=== PATIENT | male | born 1985 | race Caucasian/White ===

== ENCOUNTER → 2019-12-25 13:36 | Outpatient (CLI) | payer OTHER, SELFPAY ==
[2019-12-26 09:41] LABS: COVID19 Sendout Not Detected (Not Detect)
== END ==
PROVIDERS: Visit Provider Nurse Practitioner
DX: Z11.59 Encounter for screening for other viral diseases (principal)
CPT/HCPCS: 87635

== ENCOUNTER 2019-12-28 12:25 | Day surgery (SDC) | payer OTHER, SELFPAY ==
--- NOTE | 2019-12-28 | PATH_ITS ---
[facility] Accession Number: [id number] . 01 Material submitted: . PART A: colon - RIGHT COLON BIOPSY X3 PART B: colon - LEFT COLON BIOPSY X3 . 02 Diagnosis: A. - B. Right, Left Colon, Biopsies: Colonic mucosa with no diagnostic abnormality. Negative for active, chronic, and microscopic colitis. Negative for dysplasia and malignancy. . I 12/30/2019 1504 Local . 02 Electronically signed: . Robert Christy MD, PhD, Pathologist NPI- [id number] . 01 Gross description: . Part A: RIGHT COLON BIOPSY X3: Received in formalin are 6 fragment(s) of [place], soft tissue measuring 0.7 x 0.2 x 0.1 cm to 0.3 x 0.3 x 0.1 cm submitted entirely in 1 cassette(s) Part B: LEFT COLON BIOPSY X3: Received in formalin are 5 fragment(s) of [place], soft tissue measuring 0.9 x 0.3 x 0.1 cm to 0.4 x 0.3 x 0.1 cm submitted entirely in 1 cassette(s) /QBJ 12/29/2019 1001 Local . 02 Pathologist provided ICD-10: R19.4 . 02 CPT . 383351, [id number] Performed at: 01 [facility] [address], [place], [place] [id number] MD Hi Tucker MD Phone: [phone] Performed at: 02 [facility] [address] [place], [place] [id number] MD Lynn Luis MD Phone: [phone]
--- NOTE | 2019-12-28 09:45 | P.HP_ITS ---
History of Present Illness History of Present Illness Date Patient Seen: 12/28/19 Chief complaint: DX COLONOSCOPY W/POSS BX Narrative: 34-year-old male with a history of IBS with here for further evaluation of loose stools and periumbilical pain Meds Home Medications and Allergies Home Medications Medication Instructions Recorded Confirmed Type acetaminophen 350 mg PO PRN PRN 12/28/19 12/28/19 History albuterol sulfate 2 inh INHALATION Q4H PRN 12/28/19 12/28/19 History pantoprazole 40 mg PO DAILY 12/28/19 12/28/19 History Allergies Allergy/AdvReac Type Severity Reaction Status Date / Time No Known Drug Allergies Allergy Verified 12/28/19 12:38 Exam Narrative Exam Narrative: General: Patient is obese, not in apparent distress Cardiovascular: Regular rate and rhythm, no murmurs, rubs, or gallops; no evidence of edema; no palpable abdominal aortic aneurysm Gastrointestinal: Normoactive bowel sounds, soft, nontender, nondistended, no rebound tenderness, no hepatosplenomegaly, no evidence of hernia Assessment & Plan Assessment & Plan narrative: 34-year-old male with history of IBS with here for further evaluation of loose stools and periumbilical pain by means of colonosc opy Regarding the procedure(s), the risks and potential complications, benefits, and alternatives (including not doing the procedure) were discussed with the patient. The risks include but are not limited to bleeding, splenic injury, infection, perforation which may require surgical intervention, missed lesions, and adverse reactions to sedative medicines. After a question and answer period, the patient agreed to proceed with the procedure(s) and gives informed consent.
[2019-12-28] MEDS: SODIUM CHLORIDE 0.9% 1,000 ML 70 ML IV (12:36)
[2019-12-28 12:41] VITALS: BP 133/89; PULSE 81; RESP 16; TEMP 36.6; O2SAT 99; BMI 38.3
[2019-12-28] MEDS: MIDAZOLAM 5 MG/5 ML VIAL IV (13:05)
[2019-12-28] MEDS: fentaNYL 250 MCG/5 ML INJ IV (13:05)
--- NOTE | 2019-12-28 13:24 | P.OP.ENDO_ITS ---
Operative Date/Time/Diagnoses Date of procedure: 12/28/19 Procedure Notes Procedure in detail: Surgeon: Lucian Oseguera MD Procedure: Colonoscopy with biopsy Preoperative diagnosis: Change in bowel habits (loose stools); history of IBS Postoperative diagnosis: Grade 1 internal hemorrhoids otherwise normal colonoscopy; biopsies taken for microscopic colitis Medications: Conscious sedation using 6 mg IV of Midazolam and 150 mcg IV of Fentanyl Preanesthesia Assessment An H and P was performed/updated and the Px?s ASA class is 2. The procedure was discussed in detail with the patient. The potential risks and complications including infection, bleeding, missed lesions, perforation, need for surgery in case of perforation, prolonged hospital stay, and were explained. A brief question and answer period was allotted and once all questions were answered, informed consent was obtained. The patient was brought back to the procedure room and placed on standard monitoring. The patient?s vital signs were monitored continuously throughout the entire procedure. Prior to starting, a timeout was performed to confirm the patient?s identity, allergies, medications, and procedure. Procedure in detail The patient was placed in left lateral decubitus position and once adequate sedation was obtained a MARY was performed. The digital rectal examination did not reveal any palpable lesions. The tip of the colonoscope was placed in the anal canal and advanced without difficulty all the way to the cecum which was identified by the appendiceal orifice and the ileocecal valve. The terminal ileum was intubated to a distance of 5 cm from the ileocecal valve and the mucosa appeared normal. The colonoscope was then brought back into the cecum and careful examination of all [place] of the colon was performed with irrigation of any residual stool. The colonic mucosa appeared normal throughout the entire colon. Biopsies were taken from the left and right colon to rule out microscopic colitis. Bleeding was minimal with the biopsies Retroflexion was performed in the rectum which revealed grade 1 internal hemorrhoids The patient tolerated the procedure well and will be brought back to the recovery area to be discharged once criteria are met. The prep was judged to be good and adequate to identify polyps less than 5 mm. The withdrawal time was 9 minutes. The total physician intraservice time was 15 minutes. Complications There were no complications and estimated blood loss was minimal. Recommendations: Resume previous diet Continue outPx medications Follow up pathology results Repeat colonoscopy at age 50 for screening Call our office ([facility]) to schedule follow-up with Julisa Garcia in 2-3 weeks An emergency contact number was given to the patient for any complications related to the procedure
[2019-12-28 13:26] VITALS: BP 137/86; PULSE 82; RESP 12; TEMP 36.4; O2SAT 98
[2019-12-28 13:30] VITALS: BP 122/85; PULSE 86; RESP 10; O2SAT 97
[2019-12-28 13:35] VITALS: BP 126/88; PULSE 94; RESP 10; O2SAT 98
[2019-12-28 13:40] VITALS: BP 124/80; PULSE 96; RESP 12; O2SAT 98
[2019-12-28 14:03] VITALS: BP 121/86; PULSE 87; RESP 12; TEMP 36.8; O2SAT 98
== END 2019-12-28 14:05 | disposition home or self-care (01) ==
PROVIDERS: Referring Provider Internal Medicine Gastroenterology; Visit Provider Internal Medicine Gastroenterology
PROC: 0DJD8ZZ Inspection of Lower Intestinal Tract, Via Natural or Artificial Opening Endoscopic (ICD-10-PCS; CPT 45378; principal; 2019-12-28 13:30)
DX: R19.4 Change in bowel habit (principal); Z87.19 Personal history of other diseases of the digestive system; K64.0 First degree hemorrhoids
CPT/HCPCS: 45380; J2250; J3010

== ENCOUNTER → 2020-01-29 13:51 | Outpatient (CLI) | payer OTHER, SELFPAY ==
--- NOTE | 2020-01-29 13:52 | DI.RAD.S_ITS ---
PROCEDURE: XR FINGER RT MIN 2V INDICATIONS: right thumb pain TECHNIQUE: AP hand, 2 views of the right 1st finger(s) acquired. COMPARISON: None. FINDINGS: Bones: Mild degenerative changes at the 1st MCP . No fracture. No suspicious bony lesions. Soft tissues: No radiopaque foreign body. Soft tissue swelling about the proximal thumb. No suspicious soft tissue calcifications. IMPRESSION: Soft tissue swelling about the proximal thumb. No acute finding. Dictated by: Danny Camacho M.D. on 01/29/2020 at 14:21 Approved by: Danny Camacho M.D. on 01/29/2020 at 14:29
== END ==
PROVIDERS: PCP Physician Assistant Medical; Referring Provider Nurse Practitioner; Visit Provider Nurse Practitioner
DX: M79.644 Pain in right finger(s) (principal); M79.89 Other specified soft tissue disorders
CPT/HCPCS: 73140

== ENCOUNTER → 2020-06-08 06:40 | Outpatient (CLI) | payer OTHER, SELFPAY ==
--- NOTE | 2020-06-08 07:05 | DI.CT.S_ITS ---
PROCEDURE: CT SINUS SCREEN WO CON INDICATIONS: Impacted cerumen, unspecified ear,Chronic pansinus TECHNIQUE: Noncontrast 3.0 mm axial images acquired from the frontal sinuses to the mid-sella, with coronal and sagittal reformats. For radiation dose reduction, the following was used: automated exposure control, adjustment of mA and/or kV according to patient size. COMPARISON: None. FINDINGS: Image quality: Excellent. Sinuses: Prominent mucous retention cyst versus polyp is present in the left maxillary sinus, with a similar smaller appearing focus in the right maxillary sinus. There is very minimal scattered ethmoid mucosal thickening. No fluid levels. Remaining sinuses are clear. Ostiomeatal Complexes: Ostiomeatal complexes are patent. There is slight narrowing bilaterally secondary to middle turbinate sophie bullosa. Miscellaneous: Visualized intra-orbital contents are normal. Bilateral sophie bullosa are present. There are no paradoxical turbinate curvature. Trace leftward nasal septal deviation. Auditory canals are clear. IMPRESSION: 1. Bilateral maxillary sinus mucous retention cyst versus polyps. 2. Ostiomeatal complexes are patent. Dictated by: Cary Rico M.D. on 06/08/2020 at 10:50 Approved by: Cary Rico M.D. on 06/08/2020 at 10:52
== END ==
PROVIDERS: PCP Physician Assistant Medical; Referring Provider Otolaryngology; Visit Provider Otolaryngology
DX: J32.4 Chronic pansinusitis (principal); H61.20 Impacted cerumen, unspecified ear
CPT/HCPCS: 70486

== ENCOUNTER 2020-07-22 18:32 | Emergency (ER) | payer OTHER, SELFPAY ==
[2020-07-22] VITALS (8 sets, daily range): BP systolic 155; BP diastolic 96; PULSE 86–102; RESP 15–18; TEMP 36.8; O2SAT 95–100; BMI 40.7
--- NOTE | 2020-07-22 18:34 | ED_ITS ---
HPI - Chest Pain General Chief Complaint: Chest Pain Stated Complaint: SOB, Chest pain, coughing since yesterday Time Seen by Provider: 07/22/20 18:34 Source: patient and family Mode of arrival: Ambulatory Limitations: no limitations History of Present Illness HPI narrative: 34-year-old male nonsmoker with history of asthma presents with his significant other and a chief complaint of a few days of increasing wheez ing, dry hacking cough and now sharp, stabbing, reproducible anterior chest pain. He states that he started getting a bit wheezy a few days ago and has not been responding to his bronchodilators like normal, though he does not use a chamber at home. He then developed increasing dry cough followed by sharp and stabbing pain which is associated with cough and deep breath. He denies any fever or chills and has had no production of sputum. He denies any hemoptysis. He is not dizzy nor weak or lightheaded. He denies any nausea or vomiting. Did have his COVID shot a few days ago. Additionally, a few days before his COVID shot he was having some pain in his neck and put a bag of icy Hot on which he subsequently developed an allergic reaction to including hives and pruritus. That had resolved prior to his shot. He denies recent travel, history of blood clot, or history of cancer MD complaint: chest pain Onset (ago): day(s) Duration: intermittent Pain location: substernal Severity: mild Quality: sharp Pain radiation: none Relieving factors: nothing Exacerbating factors: inspiration Treatments prior to arrival chest pain: none Related Data Home Medications Medication Instructions Recorded Confirmed acetaminophen 350 mg PO PRN PRN 12/28/19 02/11/20 albuterol sulfate 2 inh INHALATION Q4H PRN 12/28/19 02/11/20 pantoprazole 40 mg PO DAILY 12/28/19 02/11/20 Previous Rx's Medication Instructions Recorded diclofenac sodium 1 % topical gel 2 gram TOP QID #450 gram 01/30/20 prednisone 20 mg PO DAILY #5 tab 07/22/20 Allergies Allergy/AdvReac Type Severity Reaction Status Date / Time menthol [From [facility]] AdvReac Mild Rash Verified 07/22/20 18:40 methyl salicylate AdvReac Mild Rash Verified 07/22/20 18:40 [From Healthcare [facility]] Review of Systems Constitutional Constitutional: Denies chills, Denies fatigue, Denies fever(s), Denies frequent falls, Denies lethargy and Denies weakness Eyes Eyes: Denies change in vision, Denies eye discharge, Denies irritation and Denies loss of vision ENT Ears, Nose, Mouth, and Throat: Denies change in voice, Denies dizziness, Denies neck pain, Denies sore throat and Denies throat swelling Cardiovascular Cardiovascular: Reports chest pain, Denies irregular heart rhythm, Denies lightheadedness, Denies palpitations, Reports dyspnea, Denies dyspnea on exertion and Denies orthopnea Respiratory Respiratory: Reports cough, Reports pain on inspiration, Reports pain with cough, Reports dyspnea, Denies dyspnea on exertion and Denies wheezing Gastrointestinal Gastrointestinal: Denies abdominal pain, Denies change in bowel habits, Denies diarrhea, Denies nausea and Denies vomiting Musculoskeletal Musculoskeletal: Denies neck pain and Denies numbness Integumentary/Breasts Skin/Breast: Denies pruritus, Denies erythema, Denies rash and Denies wounds Neurologic Neurologic: Denies behavioral changes, Denies confusion, Denies dizziness, Denies frequent falls, Denies loss of vision, Denies numbness and Denies weakness Psychiatric Psychiatric: Denies anxiety, Denies behavioral changes, Denies confusion, Denies depression, Denies homicidal ideation and Denies suicidal ideation Endocrine Endocrine: Denies fatigue, Denies flushing and Denies palpitations Hematologic/Lymphatic Hematologic/Lymphatic: Denies easy bruising Allergic/Immunologic Allergic/Immunologic: Denies urticaria, Denies throat swelling and Denies wheezing Patient History Medical History Hematoma, subungual, finger, right Thumb injury Social History household members: spouse Smoking Status: Never smoker alcohol intake: current Smoking Status: Never smoker alcohol intake frequency: a few times a week Substance Use Type: does not use Exam Narrative Exam Narrative: GENERAL: [34] year old patient appears stated age. Well-nourished, well-developed patient, in mild distress. Anxious HEAD: Atraumatic. Normocephalic. EYES: Pupils equal round and reactive. Extraocular motions intact. No scleral icterus. No injection or drainage. ENT: Nose without bleeding, purulent drainage. Throat without erythema, tonsillar hypertrophy or exudate. Airway patent. NECK: Trachea midline. Non tender CARDIOVASCULAR: Regular rate and rhythm without murmurs, gallops, or rubs. RESPIRATORY: Decreased breath sounds throughout with inspiratory and expiratory wheeze, no rales or rhonchi GASTROINTESTINAL: Abdomen soft, non-tender, nondistended. EXTREMITIES: No edema or joint tenderness. BACK: Nontender without deformity or crepitance. No flank tenderness. NEURO: AOx3. SKIN: No rash or erythema of visible areas Initial Vital Signs Initial Vital Signs: Vital Signs Temperature 98.2 F 07/22/20 18:37 Pulse Rate 102 H 07/22/20 18:37 Respiratory Rate 16 07/22/20 18:37 Blood Pressure 155/96 H 07/22/20 18:37 Pulse Oximetry 99 07/22/20 18:37 Course Course Course Narrative: Patient shows increasing improvement in symptoms over the co urse of the visit with above-stated therapies. Orders Ordered: ED Orders 07/22/20 18:35 Complete Blood Count AUTO DIFF Stat Comprehensive Metabolic Panel Stat D Dimer Stat Lipase Stat Partial Thromboplastin Time Stat Procalcitonin Stat Prothrombin Time INR Stat Troponin & CK Cardiac Panel Stat 07/22/20 18:37 XR chest 1V Stat EKG-12 Lead Stat 07/22/20 18:57 COVID19 -Nasal swab/Pre-Proc Stat Discontinued Medications Albuterol (Albuterol 2.5 Mg/3 Ml Neb (Adult)) 2.5 mg INH NOW ONE Stop: 07/22/20 20:32 Last Admin: 07/22/20 20:32 Dose: 2.5 mg Documented by: ALIDA Albuterol/Ipratropium (Albuterol/Ipratropium 3 Ml Ampul) 3 ml INH NOW ONE Stop: 07/22/20 19:48 Last Admin: 07/22/20 19:58 Dose: 3 ml Documented by: GENI Guaifenesin/Codeine Phosphate (Codeine/Guaifenesin Liquid 5ml Udc) 10 ml PO NOW ONE Stop: 07/22/20 21:48 Last Admin: 07/22/20 21:56 Dose: 10 ml Documented by: REBECCA Ketorolac Tromethamine (Ketorolac 60 Mg/2 Ml Vial) 15 mg IV NOW ONE Stop: 07/22/20 19:48 Last Admin: 07/22/20 19:58 Dose: 15 mg Documented by: GENI Prednisone (Prednisone 20 Mg Tablet) 40 mg PO NOW ONE Stop: 07/22/20 19:48 Last Admin: 07/22/20 19:59 Dose: 40 mg Documented by: GENI Vital Signs Vital signs: Vital Signs - 8 hr 07/22/20 18:37 07/22/20 18:43 07/22/20 19:00 Temperature 98.2 F Pulse Rate 102 H 99 H 94 H Respiratory Rate 16 15 15 Blood Pressure 155/96 H Pulse Oximetry 99 100 98 07/22/20 19:30 07/22/20 20:00 07/22/20 20:08 Temperature Pulse Rate 86 88 89 Respiratory Rate 15 17 18 Blood Pressure Pulse Oximetry 97 98 98 07/22/20 20:30 07/22/20 20:34 Temperature Pulse Rate 90 89 Respiratory Rate 18 16 Blood Pressure Pulse Oximetry 95 98 MDM - Chest Pain Lab Data Result diagrams: 07/22/20 18:35 07/22/20 18:35 Labs: Lab Results 07/22/20 07/22/20 07/22/20 Range/Units 18:35 18:35 18:35 WBC 9.0 (4.5-11.0) X10^3/uL RBC 5.54 (4.5-5.9) X10^6/uL Hgb 16.7 (13.5-17.5) g/dL Hct 47.1 (41-53) % MCV 85.0 (80-100) fL MCH 30.1 (26-34) PG MCHC 35.4 (30-36) % RDW 12.9 (11.6-14.8) % Plt Count 140 L (150-400) X10^3/uL Neut % (Auto) 62.9 (50-75) % Lymph % (Auto) 24.9 L (25-40) % [place] % (Auto) 10.0 (3-14) % Eos % (Auto) 1.6 L (2-4) % Baso % (Auto) 0.6 (0-2) % Neut # (Auto) 5600 (4844-0468) /uL Lymph # (Auto) 2200 (1396-6159) /uL [place] # (Auto) 900 (0-900) /uL Eos # (Auto) 100 (0-450) /uL Baso # (Auto) 100 (0-100) /uL PT 11.5 (10.1-12.7) SECONDS INR 1.0 (0.9-1.3) APTT 31 (26.4-36.2) SECONDS D-Dimer (<230) ng/mL Sodium 140 (137-145) mmol/L Potassium 3.5 (3.4-5.1) mmol/L Chloride 103 (98-107) mmol/L Carbon Dioxide 28 (22-32) mmol/L BUN 7 L (9-20) mg/dL Creatinine 0.69 (0.66-1.25) mg/dL Estimated GFR > 60.0 (>60) mL/min BUN/Creatinine Ratio 10.1 (6-22) Glucose 132 H (70-100) mg/dL Calcium 9.3 (8.4-10.2) mg/dL Total Bilirubin 0.6 (0.2-1.3) mg/dL AST 68 H (17-59) IU/L ALT 122 H (<50) IU/L Alkaline Phosphatase 127 H (38-126) U/L Total Creatine Kinase 140 (55-170) U/L CK-MB (CK-2) 0.27 (<2.37) ng/mL CK-MB (CK-2) Rel Index 0.2 L (1.5-5.0) % Troponin I < 0.012 (0.01-0.034) ng/mL Total Protein 7.6 (6.3-8.2) g/dL Albumin 4.4 (3.5-5.0) g/dL Globulin 3.2 (1.7-4.1) g/dL Albumin/Globulin Ratio 1.4 (1.0-2.8) Lipase 38 (23-300) U/L Procalcitonin (<0.5) ng/mL SARS-CoV-2 (PCR) (Negative) 07/22/20 07/22/20 07/22/20 Range/Units 18:35 18:35 18:57 WBC (4.5-11.0) X10^3/uL RBC (4.5-5.9) X10^6/uL Hgb (13.5-17.5) g/dL Hct (41-53) % MCV (80-100) fL MCH (26-34) PG MCHC (30-36) % RDW (11.6-14.8) % Plt Count (150-400) X10^3/uL Neut % (Auto) (50-75) % Lymph % (Auto) (25-40) % [place] % (Auto) (3-14) % Eos % (Auto) (2-4) % Baso % (Auto) (0-2) % Neut # (Auto) (9328-7068) /uL Lymph # (Auto) (5086-8111) /uL [place] # (Auto) (0-900) /uL Eos # (Auto) (0-450) /uL Baso # (Auto) (0-100) /uL PT (10.1-12.7) SECONDS INR (0.9-1.3) APTT (26.4-36.2) SECONDS D-Dimer < 200 (<230) ng/mL Sodium (137-145) mmol/L Potassium (3.4-5.1) mmol/L Chloride (98-107) mmol/L Carbon Dioxide (22-32) mmol/L BUN (9-20) mg/dL Creatinine (0.66-1.25) mg/dL Estimated GFR (>60) mL/min BUN/Creatinine Ratio (6-22) Glucose (70-100) mg/dL Calcium (8.4-10.2) mg/dL Total Bilirubin (0.2-1.3) mg/dL AST (17-59) IU/L ALT (<50) IU/L Alkaline Phosphatase (38-126) U/L Total Creatine Kinase (55-170) U/L CK-MB (CK-2) (<2.37) ng/mL CK-MB (CK-2) Rel Index (1.5-5.0) % Troponin I (0.01-0.034) ng/mL Total Protein (6.3-8.2) g/dL Albumin (3.5-5.0) g/dL Globulin (1.7-4.1) g/dL Albumin/Globulin Ratio (1.0-2.8) Lipase (23-300) U/L Procalcitonin 0.17 (<0.5) ng/mL SARS-CoV-2 (PCR) Negative (Negative) Imaging Data Chest x-ray: Radiologist's Impression: [address] [id number] ReportSigned Patient: Randy Odell [facility]#: [id number]: 1985Acct:[id number]/Sex: 34 / MDate of Service: 07/22/20Loc: EDAccession Number: [id number] Procedure: XR chest 1V Ordering Provider: Cruz Guadalupe D.O. PROCEDURE: XR CHEST 1V INDICATIONS: chest pain TECHNIQUE: One view of the chest was acquired. COMPARISON: None. FINDINGS: Surgical changes and devices: None. Lungs and pleura: Lungs are clear. No pleural effusions or pneumothorax. Mediastinum: Mediastinal contours appear normal. Heart size is normal. Bones and chest wall: No suspicious bony lesions. Overlying soft tissues appear unremarkable. IMPRESSION: No acute disease. Dictated by: Cyrus Barragan M.D. on 07/22/2020 at 18:55 Approved by: Cyrus Barragan M.D. on 07/22/2020 at 18:56 [facility] Narrative Medical decision making narrative: Multiple causes of chest pain considered including HI, PE, pneumothorax, pneumonia, aortic dissection, and pleurisy. Patient reports no radiation, no diaphoresis, no provocation with exertion, and no vomiting Patient's symptoms improved over duration of stay with above-stated therapies. Findings and discharge diagnosis discussed with patient/family followed by verbalization of understanding Return precautions discussed with patient/family whom verbalize understanding. Discharge Plan Departure Patient Disposition: Home Clinical Impression: Acute bronchospasm Asthma exacerbation Qualifiers: Asthma severity: moderate Asthma persistence: persistent Qualified Code(s): J45.41 - Moderate persistent asthma with (acute) exacerbation Instructions: Asthma -- Adult Activity Restrictions/Additional Instructions: *You have been diagnosed with [asthma exacerbation with bronchospasm.] *What to do: *Take medications as directed *Follow up with your primary care provider in 2-3 days, call for an appointment. Let them know you were seen in the Emergency Department and that we ask that you be seen in follow up *Return to ER if you should have any new, worsening or concerning symptoms Prescriptions: New prednisone 20 mg tablet 20 mg PO DAILY Qty: 5 RF: 0 No Action diclofenac sodium 1 % gel 2 gram TOP QID Qty: 450 RF: 0 acetaminophen 325 mg Tablet 350 mg PO PRN PRN (Reason: Pain (Scale Score 1-3)) RF: 0 pantoprazole 40 mg Tablet,Delayed Release (Dr/Ec) 40 mg PO DAILY RF: 0 albuterol sulfate 90 mcg/actuation Aerosol Powdr Breath Activated 2 inh INHALATION Q4H PRN (Reason: Wheezing) RF: 0 Referrals: Gera Eason PA-C [Primary Care Provider] -
--- NOTE | 2020-07-22 18:37 | DI.RAD.S_ITS ---
PROCEDURE: XR CHEST 1V INDICATIONS: chest pain TECHNIQUE: One view of the chest was acquired. COMPARISON: None. FINDINGS: Surgical changes and devices: None. Lungs and pleura: Lungs are clear. No pleural effusions or pneumothorax. Mediastinum: Mediastinal contours appear normal. Heart size is normal. Bones and chest wall: No suspicious bony lesions. Overlying soft tissues appear unremarkable. IMPRESSION: No acute disease. Dictated by: Cyrus Barragan M.D. on 07/22/2020 at 18:55 Approved by: Cyrus Barragan M.D. on 07/22/2020 at 18:56
[2020-07-22 18:52] LABS: Add Manual Diff / Slide Review NO; Basophils Absolute Auto 100 /uL (0-100); Basophils Percent Auto 0.6 % (0-2); Eosinophils Absolute Auto 100 /uL (0-450); Eosinophils Percent Auto 1.6 % (2-4); Hematocrit 47.1 % (41-53); Hemoglobin 16.7 g/dL (13.5-17.5); Lymphocytes Absolute Auto 2200 /uL (1100-4500); Lymphocytes Percent Auto 24.9 % (25-40); Mean Corpuscular HGB Conc 35.4 % (30-36); Mean Corpuscular Hemoglobin 30.1 PG (26-34); Monocytes Absolute Auto 900 /uL (0-900); Neutrophils Absolute Auto 5600 /uL (1500-7000); Neutrophils Percent Auto 62.9 % (50-75); Platelet Count 140 X10^3/uL (150-400); Red Blood Cell Count 5.54 X10^6/uL (4.5-5.9); Red Cell Distribution Width 12.9 % (11.6-14.8)
[2020-07-22 18:59] LABS: Prothrombin Time 11.5 SECONDS (10.1-12.7)
[2020-07-22 19:02] LABS: PTT Partial Thromboplastin Tim 31 SECONDS (26.4-36.2)
[2020-07-22 19:03] LABS: Alanine Aminotransferase 122 IU/L (<50); Albumin 4.4 g/dL (3.5-5.0); Albumin Globulin Ratio 1.4 (1.0-2.8); Alkaline Phosphatase 127 U/L (38-126); Aspartate Aminotransferase 68 IU/L (17-59); BUN Creatinine Ratio 10.1 (6-22); Bilirubin Total 0.6 mg/dL (0.2-1.3); Blood Urea Nitrogen 7 mg/dL (9-20); Calcium 9.3 mg/dL (8.4-10.2); Carbon Dioxide 28 mmol/L (22-32); Chloride 103 mmol/L (98-107); Creatine Kinase 140 U/L (55-170); Estimated Glomerular Filt Rate > 60.0 mL/min (>60); Globulin 3.2 g/dL (1.7-4.1); Glucose 132 mg/dL (70-100); HEMOLYSIS 16 (0-50); Lipase 38 U/L (23-300); Potassium 3.5 mmol/L (3.4-5.1); Sodium 140 mmol/L (137-145); Total Protein 7.6 g/dL (6.3-8.2)
[2020-07-22 19:09] LABS: D Dimer < 200 ng/mL (<230)
[2020-07-22 19:15] LABS: Troponin I < 0.012 ng/mL (0.01-0.034)
[2020-07-22 19:17] LABS: COVID19 -Nasal RAPID Negative (Negative)
[2020-07-22 19:27] LABS: Procalcitonin 0.17 ng/mL (<0.5)
[2020-07-22 19:31] LABS: CKMB % Relative Index 0.2 % (1.5-5.0); Creatine Kinase MB 0.27 ng/mL (<2.37)
[2020-07-22] MEDS: KETOROLAC 60 MG/2 ML VIAL 15 MG IV (19:58)
[2020-07-22] MEDS: ALBUTEROL/IPRATROPIUM 3 ML AMPUL INH (19:58)
[2020-07-22] MEDS: predniSONE 20 MG TABLET 40 MG PO (19:59)
[2020-07-22] MEDS: ALBUTEROL 2.5 MG/3 ML NEB (ADULT) INH (20:32)
[2020-07-22] MEDS: CODEINE/GUAIFENESIN LIQUID 5ML UDC 10 ML PO (21:56)
== END 2020-07-22 22:11 | disposition home or self-care (01) ==
PROVIDERS: Emergency Provider Emergency Medicine; PCP Physician Assistant Medical
DX: J45.901 Unspecified asthma with (acute) exacerbation (principal); Z20.822 Contact with and (suspected) exposure to COVID-19
CPT/HCPCS: 36415; 71045; 80053; 82550; 82553; 83690; 84145; 84484; 85025; 85379; 85610; 85730; 87635; 93005; 94150; 94640; 96374; 99284; C9803; J1885; J7613

== ENCOUNTER → 2021-02-05 18:25 | Outpatient (CLI) | payer OTHER, SELFPAY ==
[2021-02-05 19:27] LABS: COVID19 -Nasal RAPID Negative (Negative)
== END ==
PROVIDERS: PCP Physician Assistant Medical; Referring Provider Physician Assistant; Visit Provider Physician Assistant
DX: R05.9 Cough, unspecified (principal); R09.81 Nasal congestion; R09.89 Other specified symptoms and signs involving the circulatory and respiratory systems
CPT/HCPCS: 87635

== ENCOUNTER → 2021-04-04 07:59 | Outpatient (CLI) | payer OTHER, SELFPAY ==
[2021-04-04 08:27] LABS: COVID19 -Nasal RAPID Negative (Negative)
== END ==
PROVIDERS: PCP Physician Assistant Medical; Referring Provider Nurse Practitioner Family; Visit Provider Nurse Practitioner Family
DX: Z20.822 Contact with and (suspected) exposure to COVID-19 (principal)
CPT/HCPCS: 87635

== ENCOUNTER → 2021-04-06 10:48 | Outpatient (CLI) | payer OTHER, SELFPAY ==
[2021-04-06 11:16] LABS: COVID19 -Nasal RAPID POSITIVE (Negative)
== END ==
PROVIDERS: PCP Physician Assistant Medical; Visit Provider Nurse Practitioner Family
DX: U07.1 COVID-19 (principal)
CPT/HCPCS: 87635

== ENCOUNTER → 2021-04-06 10:55 | Outpatient (CLI) | payer OTHER, SELFPAY ==
--- NOTE | 2021-04-06 10:58 | DI.RAD.S_ITS ---
PROCEDURE: XR CHEST 2V INDICATIONS: prolonged cough TECHNIQUE: 2 views of the chest were acquired. COMPARISON: [facility], CR, XR CHEST 1V, 07/22/2020, 18:39. FINDINGS: Surgical changes and devices: None. Lungs and pleura: Lungs are clear. No pleural effusions or pneumothorax. Mediastinum: Mediastinal contours are normal. Heart size is normal. Bones and chest wall: No suspicious bony abnormalities. Soft tissues appear unremarkable. IMPRESSION: No evidence of an acute cardiopulmonary abnormality. Dictated by: Keshawn Blackmon D.O. on 04/06/2021 at 10:12 Approved by: Keshawn Blackmon D.O. on 04/06/2021 at 10:12
== END ==
PROVIDERS: PCP Physician Assistant Medical; Referring Provider Nurse Practitioner Family; Visit Provider Nurse Practitioner Family
DX: U07.1 COVID-19 (principal)
CPT/HCPCS: 71046; 87635

== ENCOUNTER 2022-06-26 08:02 | Outpatient (CLI) | payer OTHER, SELFPAY | END 2022-06-30 09:20 | disposition home or self-care (01) | LOC: PHYS 08:02 | PROVIDERS: Family Provider Physician Assistant Medical; PCP Physician Assistant Medical; Referring Provider Physician Assistant Medical; Visit Provider Physician Assistant Medical | DX: G56.01 Carpal tunnel syndrome, right upper limb (principal) | CPT/HCPCS: 95886; 95909 ==

== ENCOUNTER → 2022-09-29 09:33 | Outpatient (CLI) | payer OTHER, SELFPAY ==
--- NOTE | 2022-09-29 09:35 | DI.RAD.S_ITS ---
PROCEDURE: XR CHEST 2V INDICATIONS: Shortness of breath TECHNIQUE: 2 views of the chest were acquired. COMPARISON: [facility], , XR CHEST 2V, 04/06/2021, 10:51. [facility], CR, XR CHEST 1V, 07/22/2020, 18:39. FINDINGS: Surgical changes and devices: None. Lungs and pleura: Lungs are clear. No pleural effusions or pneumothorax. Mediastinum: Mediastinal contours are normal. Heart size is normal. Bones and chest wall: No suspicious bony abnormalities. Soft tissues appear unremarkable. IMPRESSION: No acute cardiopulmonary process. Dictated by: Randy Ennis M.D. on 09/29/2022 at 9:57 Approved by: Randy Ennis M.D. on 09/29/2022 at 9:58
== END ==
PROVIDERS: Family Provider Physician Assistant Medical; PCP Physician Assistant Medical; Referring Provider Physician Assistant; Visit Provider Physician Assistant
DX: R06.02 Shortness of breath (principal)
CPT/HCPCS: 71046